=== PATIENT | female | born 1985 | race Caucasian/White ===

== ENCOUNTER 2018-02-27 17:21 | Observation (INO) ==
--- NOTE | 2018-02-27 17:53 | ED ---
HPI General Chief Complaint: Chest Pain Stated Complaint: Chest heavy/Dizziness/Light headed Time Seen by Provider: 02/27/18 17:38 Source: patient Mode of arrival: ambulatory Limitations: no limitations History of Present Illness HPI narrative: 32-year-old female states she has been having chest pain over the past couple of days. She states she has lightheadedness as well. She states she has nitroglycerin her primary doctor gave her given she recent was there and had a low heart rate on her EKG. She states her father had a heart attack in his 20s. She states her last stress test was about 2 or 3 years ago. She states she does not take an aspirin yet today. She denies any other concurrent complaints. She denies specific modifying factors. MD complaint: Reports chest pain STEMI Alert: No Onset (ago): day(s) Duration: intermittent Pain location: Reports substernal Severity: moderate Quality: Reports heaviness Pain radiation: Reports none Relieving factors: nothing Exacerbating factors: nothing Treatments prior to arrival chest pain: Reports none Related Data Home Medications Medication Instructions Recorded Confirmed aspirin [Aspir-81] 81 mg PO HS 02/27/18 02/27/18 diltiazem HCl [Cardizem LA] 120 mg PO DAILY 02/27/18 02/27/18 metformin 1,000 mg PO BID 02/27/18 02/27/18 metoprolol succinate 50 mg PO DAILY 02/27/18 02/27/18 nitroglycerin [Nitrostat] 0.4 mg SUBLINGUAL Q5-15M PRN 02/27/18 02/27/18 Allergies Allergy/AdvReac Type Severity Reaction Status Date / Time codeine Allergy Severe Hallucinati Unverified 02/27/18 17:58 ons doxycycline Allergy Severe Hives Unverified 02/27/18 17:58 Review of Systems ROS: all other systems reviewed are negative PMFSH History History Provided By: Patient (Hypertension) Medical History Medical History History of PCOS (Acute) History of chest pain (Acute) History of hypertension (Acute) Surgical History Surgical History Hx of tubal ligation (Acute) Social History Social History Substance History: No History of Abuse Second Hand Smoke Exposure: Yes Smoking Status: Current some day smoker Tobacco Type: Cigarettes How Often Do You Have a Drink Containing Alcohol: 2 to 4 times a month Recent Travel in [facility] within the Last 8 Weeks: No Recent Out of Country Travel within the Last 8 Weeks: No Exam Narrative Exam Narrative: GENERAL: 32-year-old female in no apparent distress SKIN: Focused skin assessment warm/dry. HEAD: Atraumatic. Normocephalic. EYES: Pupils equal and round. No scleral icterus. No injection or drainage. ENT: No nasal bleeding or discharge. Mucous membranes pink and moist. NECK: Trachea midline. No JVD. CARDIOVASCULAR: Regular rate and rhythm. No murmur appreciated. RESPIRATORY: No accessory muscle use. Clear to auscultation. Breath sounds equal bilaterally. GASTROINTESTINAL: Abdomen soft, non-tender, nondistended MUSCULOSKELETAL: No obvious deformities. No clubbing. No cyanosis. No edema. NEUROLOGICAL: Awake and alert. No obvious cranial nerve deficits. Motor grossly within normal limits. Normal speech. PSYCHIATRIC: Appropriate mood and affect; insight and judgment normal. Course Reevaluation(s) Reevaluation #1: ED workup no acute, agrees to chest pain center observation Initial Documented Vital Signs Pulse Oximetry 98 02/27/18 17:38 Last Documented Vital Signs Temperature 98 F 02/27/18 17:58 Pulse Rate 85 02/27/18 17:58 Respiratory Rate 18 02/27/18 17:58 Blood Pressure 141/96 H 02/27/18 17:58 Pulse Oximetry 96 02/27/18 17:58 Medical Decision Making [facility] Narrative Medical decision making narrative: Will check blood work, x-ray and dose with aspirin and nitroglycerin and reevaluate Medical Screen Exam Complete: Yes Emergency Medical Condition: Yes Differential Diagnosis Differential Diagnosis: Atypical cardiac, PE, musculoskeletal. Gastritis Lab Data Lab results reviewed: Yes I reviewed the patient's lab results. Result diagrams: 02/27/18 17:45 02/27/18 17:45 Lab Results 02/27/18 02/27/18 02/27/18 Range/Units 17:45 17:45 17:45 CBC w Diff Auto diff final WBC 10.1 (4.0-11.0) th/mm3 RBC 4.38 (4.00-5.30) mil/mm3 Hgb 14.3 (11.6-15.3) gm/dL Hct 42.3 (35.0-46.0) % MCV 96.4 (80.0-100.0) fL MCH 32.7 (27.0-34.0) pg MCHC 33.9 (32.0-36.0) % RDW 12.0 (11.6-17.2) % Plt Count 187 (150-450) th/mm3 MPV 11.1 H (7.0-11.0) fL Neut % (Auto) 62.7 (16.0-70.0) % Lymph % (Auto) 28.1 (9.0-44.0) % Rich % (Auto) 5.5 (0.0-8.0) % Eos % (Auto) 1.2 (0.0-4.0) % Baso % (Auto) 2.5 H (0.0-2.0) % Neut # (Auto) 6.3 (1.8-7.7) th/mm3 Lymph # (Auto) 2.8 (1.0-4.8) th/mm3 [place] # (Auto) 0.6 (0.0-0.9) th/mm3 Eos # (Auto) 0.1 (0.0-0.4) th/mm3 Baso # (Auto) 0.3 H (0.0-0.2) th/mm3 WBC Differential . Differential Comment . PT 9.6 L (9.8-11.6) sec INR 0.9 Ratio APTT 23.3 L (24.3-30.1) sec D-Dimer Quant (PE/DVT) 0.27 (0.00-0.50) mg/L FEU Sodium 140 (136-145) meq/L Potassium 3.3 L (3.5-5.1) meq/L Chloride 105 (98-107) meq/L Carbon Dioxide 24.7 (21.0-32.0) meq/L Anion Gap 10 (5-15) meq/L BUN 10 (7-18) mg/dL Creatinine 0.90 (0.50-1.00) mg/dL Estimated GFR 72 L (>89) mL/min Random Glucose 124 H (74-106) mg/dL Calcium 8.7 (8.5-10.1) mg/dL Magnesium 1.7 (1.5-2.5) mg/dL Total Bilirubin 0.2 (0.2-1.0) mg/dL AST 22 (15-37) U/L ALT 34 (10-53) U/L Alkaline Phosphatase 98 (45-117) U/L Total Creatine Kinase 99 (26-192) U/L Troponin I Less than 0.02 L (0.02-0.05) ng/mL Total Protein 7.2 (6.4-8.2) g/dL Albumin 3.7 (3.4-5.0) g/dL Lipase 112 (73-393) U/L Imaging Data Attestation: I personally reviewed and interpreted this imaging study as follows : Radiologist's impression: Chest X-Ray 02/27/18 17:38 CONCLUSION: No acute cardiopulmonary process. Discharge Plan Discharge Disposition Patient Disposition: 30 Still Patient Discharge Condition Condition: Stable Discharge Details Diagnosis: Chest pain Physicians Team ED Provider: Archana Rodriguez Primary Care Provider: UNKNOWN, Rxs /Orders / Referrals /Forms Prescriptions: No Action metoprolol succinate 50 mg Tablet Extended Release 24 Hr 50 mg PO DAILY RF: 0 aspirin [Aspir-81] 81 mg Tablet,Delayed Release (Dr/Ec) 81 mg PO HS RF: 0 metformin 1,000 mg Tablet 1,000 mg PO BID RF: 0 nitroglycerin [Nitrostat] 0.4 mg Tablet, Sublingual 0.4 mg SUBLINGUAL Q5-15M PRN (Reason: Chest Pain) RF: 0 diltiazem HCl [Cardizem LA] 120 mg Tablet Extended Release 24 Hr 120 mg PO DAILY RF: 0 Discharge Instructions Patient Printed Instructions: Chest Pain (ED) Status ED Status: Admitted Observation Patient
[2018-02-27 18:08] LABS: Baso # (Auto) 0.3 th/mm3 (0.0-0.2); Baso % (Auto) 2.5 % (0.0-2.0); Eos # (Auto) 0.1 th/mm3 (0.0-0.4); Eos % (Auto) 1.2 % (0.0-4.0); Hematocrit 42.3 % (35.0-46.0); Hemoglobin 14.3 gm/dL (11.6-15.3); Lymph # (Auto) 2.8 th/mm3 (1.0-4.8); Lymph % (Auto) 28.1 % (9.0-44.0); Mean Corpuscular HGB Conc 33.9 % (32.0-36.0); Mean Corpuscular Hemoglobin 32.7 pg (27.0-34.0); Mean Corpuscular Volume 96.4 fL (80.0-100.0); Mean Platelet Volume 11.1 fL (7.0-11.0); Mono # (Auto) 0.6 th/mm3 (0.0-0.9); Mono % (Auto) 5.5 % (0.0-8.0); Neut # (Auto) 6.3 th/mm3 (1.8-7.7); Neut % (Auto) 62.7 % (16.0-70.0); Platelet Count 187 th/mm3 (150-450); Red Blood Count 4.38 mil/mm3 (4.00-5.30); White Blood Count 10.1 th/mm3 (4.0-11.0)
[2018-02-27 18:09] LABS: Chloride 105 meq/L (98-107); Potassium 3.3 meq/L (3.5-5.1); Sodium 140 meq/L (136-145)
[2018-02-27 18:13] LABS: Albumin 3.7 g/dL (3.4-5.0); Anion Gap 10 meq/L (5-15); Blood Urea Nitrogen 10 mg/dL (7-18); Calcium 8.7 mg/dL (8.5-10.1); Carbon Dioxide 24.7 meq/L (21.0-32.0); Glucose,Random 124 mg/dL (74-106); Lipase 112 U/L (73-393); Magnesium 1.7 mg/dL (1.5-2.5)
[2018-02-27 18:15] LABS: Activated Partial Thrombo Time 23.3 sec (24.3-30.1); INR 0.9 Ratio; Prothrombin Time 9.6 sec (9.8-11.6)
--- NOTE | 2018-02-27 18:15 | XR ---
EXAM DATE: 02/27/2018 5:38 PM EDT AGE/SEX: 32 years / Female INDICATIONS: Chest pain and pressure. CLINICAL DATA: This is the patient's initial encounter. Patient reports that signs and symptoms have been present for 1 week and indicates a pain score of 5/10. MEDICAL/SURGICAL HISTORY: None. None. COMPARISON: None. FINDINGS: A single AP view of the chest demonstrates the lungs to be symmetrically aerated without evidence of mass, infiltrate or effusion. The cardiomediastinal contours are unremarkable. Osseous structures a re intact. CONCLUSION: No acute cardiopulmonary process. Electronically signed by: Yasmani Amaya MD 02/27/2018 6:14 PM EDT
[2018-02-27 18:16] LABS: Alanine Aminotransferase 34 U/L (10-53); Aspartate Aminotransferase 22 U/L (15-37); Glomerular Filtration Rate 72 mL/min (>89)
[2018-02-27 18:18] LABS: Total Protein 7.2 g/dL (6.4-8.2)
[2018-02-27 18:19] LABS: Alkaline Phosphatase 98 U/L (45-117)
[2018-02-27 18:24] LABS: Creatine Kinase 99 U/L (26-192); D-Dimer 0.27 mg/L FEU (0.00-0.50)
[2018-02-27] MEDS ORDERED: Dextrose 50% in Water 50 ML Vial IV.PUSH PRN (18:33)
[2018-02-27] MEDS ORDERED: Acetaminophen 500 MG Tablet PO PRN (18:35)
[2018-02-27] MEDS ORDERED: Potassium Bicarbonate 25 MEQ Effervescent Tablet PO ONE (20:00)
[2018-02-27] MEDS: Insulin NovoLOG Aspart Correctional Sugar Inj SQ SCH (20:48)
[2018-02-27] MEDS ORDERED: dilTIAZem CD 120 MG Capsule PO SCH (21:00)
[2018-02-27 21:16] LABS: Bilirubin,Urine Negative (Negative); Clarity,Urine Clear (Clear); Glucose,Urine (UA) Negative (Negative); Leukocyte Esterase,Urine Negative (Negative); Nitrite,Urine Negative (Negative); PH,Urine 6.5 (5.0-8.5); Specific Gravity,Urine Less/Equal 1.005 (1.002-1.035); Urobilinogen,Urine 0.2 mg/dL (Less than 2)
[2018-02-27 21:17] LABS: Color,Urine Straw (Yellw/Straw)
[2018-02-27 21:18] LABS: Creatine Kinase 78 U/L (26-192)
[2018-02-27 21:22] LABS: Squamous Epithelial Cell,Urine 0-5 /hpf (0-5); WBC,Urine 0-5 /hpf (0-5)
[2018-02-28 00:48] LABS: Creatine Kinase 73 U/L (26-192)
[2018-02-28] MEDS: Insulin NovoLOG Aspart Correctional Sugar Inj SQ SCH ×2 (07:34→12:03)
--- NOTE | 2018-02-28 08:38 | P.HP ---
History of Present Illness Primary Care Physician: Jocelyn Ramsay Chief Complaint: Chest pain History of Present Illness: 32-year-old female with known history of hypertension, PCOS, family history of early onset heart disease who presented the hospital for evaluation of chest discomfort. Patient states that she has chronic chest discomfort which is going on for years. Last time she had evaluation was at [facility] approximately 10 months ago where she was evaluated and was given nitro with relief of her pain and she was discharged home. She did indicate to her prior medical doctor that she is still been experiencing intermittent chest discomfort and she was prescribed nitro to use during the episodes. Patient states that she gets chest discomfort at least one time a week which is located in her chest which she describes as a heaviness sensation. States that it feels like the discomfort is coming from her back out into her chest with radiation to her left arm. She had associated dizziness and possible shortness of breath. She denies any diaphoresis, the pain usually last anywhere from 30 minutes to a couple days at a time. She indicates that her last stress test was done approximately 5 years ago. The patient did just quit smoking cigarettes 3 weeks ago. Patient was evaluated emergency department and it was recommended by the ER physician that the patient be observed in the hospital for further evaluation and management. - Diagnosis (1) Chest pain Review of Systems All other systems reviewed negative except as stated in HPI Cardiovascular: Reports chest pain PMFSH - History History Provided By: Patient - Medical History Medical History: Medical History (Last Reviewed 02/28/18 @ 07:52 by JOVAN Sanchez) History of PCOS History of chest pain History of hypertension - Surgical History Surgical History: Surgical History (Last Updated 02/28/18 @ 07:52 by JOVAN Sanchez) History of bilateral breast reduction surgery History of bunionectomy History of right knee surgery History of tonsillectomy Hx of tubal ligation - Family History Family History: Family History (Last Updated 02/28/18 @ 07:53 by JOVAN Sanchez) Father History of myocardial infarction History of stroke Mother History of seizure - Tobacco History Second Hand Smoke Exposure: Yes Tobacco Use In Past 30 Days: Yes Smoking Status: Former smoker Tobacco Type: Cigarettes Number of Pack Years (if former smoker): 18 (Quit 3 weeks ago) - Alcohol History How Often Do You Have a Drink Containing Alcohol: Monthly or less - Substance Use History Substance History: No History of Abuse - Travel History Recent Travel in the [place] Within the Last 8 Weeks: No Recent Travel Out of the Country Within the Last 8 Weeks: No - Immunization History Tetanus Immunization: Unsure Medications and Allergies Active Medications: Active Medications Acetaminophen (Tylenol) 500 mg PO Q4H PRN PRN Reason: HEADACHE Aspirin (Aspirin) 325 mg PO DAILY [facility] Dextrose (D50w Vial) 50 ml IV.PUSH UNSCH PRN PRN Reason: PER HYPOGLYCEMIA PROTOCOL Diltiazem HCl (Cardizem Cd 24hr) 120 mg PO [facility] Last Admin: 02/27/18 22:49 Dose: 120 mg Glucagon (Glucagon Inj) 1 mg OTHER PRN PRN PRN Reason: for Hypoglycemia Protocol Insulin Aspart (Novolog Insulin Correctional Sugar Inj) 0 unit SQ ACHS [facility]; Protocol Last Admin: 02/28/18 07:34 Dose: Not Given Metoprolol Succinate (Toprol Xl) 50 mg PO DAILY [facility] Nitroglycerin (Nitrostat Sl) 0.4 mg SL Q5M PRN PRN Reason: Chest Pain Ondansetron HCl (Zofran Inj) 4 mg IV.PUSH Q6H PRN PRN Reason: NAUSEA Sodium Chloride (Ns Flush) 2 ml IV.FLUSH BID [facility] Last Admin: 02/27/18 20:53 Dose: 2 ml Sodium Chloride (Ns Flush) 2 ml IV.FLUSH PRN PRN PRN Reason: FLUSH AFTER USING IV ACCESS Allergies Allergy/AdvReac Type Severity Reaction Status Date / Time codeine Allergy Severe Hallucinati Verified 02/27/18 19:26 ons doxycycline Allergy Severe Hives Verified 02/27/18 19:26 Home Medications Medication Instructions Recorded Confirmed Type aspirin [Aspir-81] 81 mg PO HS 02/27/18 02/27/18 History diltiazem HCl [Cardizem LA] 120 mg PO HS 02/27/18 02/27/18 History metformin 1,000 mg PO BID 02/27/18 02/27/18 History metoprolol succinate 50 mg PO DAILY 02/27/18 02/27/18 History nitroglycerin [Nitrostat] 0.4 mg SUBLINGUAL Q5-15M PRN 02/27/18 02/27/18 History Exam Vital signs: Vital Signs 02/27/18 17:38 02/27/18 17:52 02/27/18 17:58 Temperature 98 F Pulse Rate 85 85 Respiratory Rate 18 Blood Pressure 141/96 H Pulse Oximetry 98 96 96 02/27/18 18:37 02/27/18 19:22 02/27/18 20:05 Temperature Pulse Rate 83 78 58 L Respiratory Rate 16 16 16 Blood Pressure 126/84 126/84 158/82 H Pulse Oximetry 98 98 99 02/27/18 21:20 02/27/18 21:50 02/28/18 00:10 Temperature 97.7 F Pulse Rate 60 71 Respiratory Rate 18 Blood Pressure 132/85 Pulse Oximetry 97 97 02/28/18 04:00 Temperature 97.2 F L Pulse Rate 71 Respiratory Rate 18 Blood Pressure 120/69 Pulse Oximetry 94 L Intake & Output 02/27/18 02/28/18 02/28/18 18:59 06:59 18:59 Weight 103.7 kg 93.8 kg Other: # Voids 2 Weight On Admission 103.419 kg Narrative: GENERAL: Well-developed, well-nourished, in no acute distress. alert and orientated HEENT: Head is normocephalic without any lesions or masses noted. Facial features are symmetric. Eyes: Pupils equal round reactive to light. Extraocular muscles are intact. Conjunctivae were clear. Oropharyngeal: Pharynx without any erythema edema. Tongue is midline without deviation. Buccal mucosa is moist without any masses or lesions NECK: Supple without any masses. Trachea midline no deviation. No JVD, no bruits are appreciated CARDIAC: Regular rhythm, regular rate. S1/S2 are heard. No murmurs gallops or rubs. LUNGS: Clear to auscultation bilaterally. No wheeze, rhonchi or rales. No use of accessory muscles on inspiration or expiration. ABDOMEN: Soft, nontender. Nondistended. Bowel sounds heard in all 4 quadrants. No organomegaly or masses. Negative rebound, negative guarding EXTREMITIES: No edema, pulses are equal bilaterally. No cyanosis or clubbing NEUROLOGY: Mood and affect appear appropriate. Cranial nerves II through XII grossly intact. Muscle strength 5/5 in upper and lower extremities bilaterally. Deep tendon reflexes are 2+ in upper and lower extremities bilaterally. Results - Labs CBC & Chem 7: 02/27/18 17:45 02/27/18 17:45 Labs: Laboratory Results - last 24 hr 1002/27/18 02/27/18 17:45 17:45 17:45 CBC w Diff Auto diff final WBC 10.1 RBC 4.38 Hgb 14.3 Hct 42.3 MCV 96.4 MCH 32.7 MCHC 33.9 RDW 12.0 Plt Count 187 MPV 11.1 H Neut % (Auto) 62.7 Lymph % (Auto) 28.1 [place] % (Auto) 5.5 Eos % (Auto) 1.2 Baso % (Auto) 2.5 H Neut # (Auto) 6.3 Lymph # (Auto) 2.8 [place] # (Auto) 0.6 Eos # (Auto) 0.1 Baso # (Auto) 0.3 H WBC Differential . Differential Comment . PT 9.6 L INR 0.9 APTT 23.3 L D-Dimer Quant (PE/DVT) 0.27 Sodium 140 Potassium 3.3 L Chloride 105 Carbon Dioxide 24.7 Anion Gap 10 BUN 10 Creatinine 0.90 Estimated GFR 72 L POC Glucose Random Glucose 124 H Calcium 8.7 Magnesium 1.7 Total Bilirubin 0.2 AST 22 ALT 34 Alkaline Phosphatase 98 Total Creatine Kinase 99 Troponin I Less than 0.02 L Total Protein 7.2 Albumin 3.7 Lipase 112 Urine Color Urine Clarity Urine pH Ur Specific [place] Urine Protein Urine Glucose (UA) Urine Ketones Urine Occult Blood Urine Nitrate Urine Bilirubin Urine Urobilinogen Ur Leukocyte Esterase Urine WBC Ur Squamous Epith Cells Micro UA Comment Ur Microscopic Review Urine Culture Comments 02/27/18 02/27/18 02/27/18 20:45 20:50 21:10 CBC w Diff WBC RBC Hgb Hct MCV MCH MCHC RDW Plt Count MPV Neut % (Auto) Lymph % (Auto) [place] % (Auto) Eos % (Auto) Baso % (Auto) Neut # (Auto) Lymph # (Auto) [place] # (Auto) Eos # (Auto) Baso # (Auto) WBC Differential Differential Comment PT INR APTT D-Dimer Quant (PE/DVT) Sodium Potassium Chloride Carbon Dioxide Anion Gap BUN Creatinine Estimated GFR POC Glucose 79 Random Glucose Calcium Magnesium Total Bilirubin AST ALT Alkaline Phosphatase Total Creatine Kinase 78 Troponin I Less than 0.02 L Total Protein Albumin Lipase Urine Color Straw Urine Clarity Clear Urine pH 6.5 Ur Specific [place] Less/equal 1.005 Urine Protein Negative Urine Glucose (UA) Negative Urine Ketones Negative Urine Occult Blood Negative Urine Nitrate Negative Urine Bilirubin Negative Urine Urobilinogen 0.2 Ur Leukocyte Esterase Negative Urine WBC 0-5 Ur Squamous Epith Cells 0-5 Micro UA Comment Culture not ind Ur Microscopic Review Microscopic reviewed Urine Culture Comments Culture not ind 02/28/18 02/28/18 00:05 07:31 CBC w Diff WBC RBC Hgb Hct MCV MCH MCHC RDW Plt Count MPV Neut % (Auto) Lymph % (Auto) [place] % (Auto) Eos % (Auto) Baso % (Auto) Neut # (Auto) Lymph # (Auto) [place] # (Auto) Eos # (Auto) Baso # (Auto) WBC Differential Differential Comment PT INR APTT D-Dimer Quant (PE/DVT) Sodium Potassium Chloride Carbon Dioxide Anion Gap BUN Creatinine Estimated GFR POC Glucose 117 H Random Glucose Calcium Magnesium Total Bilirubin AST ALT Alkaline Phosphatase Total Creatine Kinase 73 Troponin I Less than 0.02 L Total Protein Albumin Lipase Urine Color Urine Clarity Urine pH Ur Specific [place] Urine Protein Urine Glucose (UA) Urine Ketones Urine Occult Blood Urine Nitrate Urine Bilirubin Urine Urobilinogen Ur Leukocyte Esterase Urine WBC Ur Squamous Epith Cells Micro UA Comment Ur Microscopic Review Urine Culture Comments - Imaging Impressions Chest X-Ray 02/27/18 17:38 CONCLUSION: No acute cardiopulmonary process. Caprini VTE Risk Assessment Caprini VTE Risk Assessment: No/Low Risk (score <= 1) Caprini Risk Assessment Model: Point Value = 1 Point Value = 2 Point Value = 3 Point Value = 5 Age 41-60 Minor surgery BMI > 25 kg/m2 Swollen legs Varicose veins or History of unexplained or recurrent spontaneous Oral contraceptives or hormone replacement Sepsis (< 1 month) Serious lung disease, including pneumonia (< 1 month) Abnormal pulmonary function Acute myocardial infarction Congestive heart failure (< 1 month) History of inflammatory bowel disease Medical patient at bed rest Age 61-74 Arthroscopic surgery Major open surgery (> 45 min) Laparoscopic surgery (> 45 min) Malignancy Confined to bed (> 72 hours) Immobilizing plaster cast Central venous access Age >= 75 History of VTE Family history of VTE Factor V Leiden Prothrombin [id number] Lupus anticoagulant Anticardiolipin antibodies Elevated serum homocysteine Heparin-induced thrombocytopenia Other congenital or acquired thrombophilia Stroke (< 1 month) Elective arthroplasty Hip, pelvis, or leg fracture Acute spinal cord injury (< 1 month) Prophylaxis Regimen: Total Risk Factor Score Risk Level Prophylaxis Regimen 0-1 Low Early ambulation 2 Moderate Order ONE of the following: *Sequential Compression Device (SCD) *Heparin 5000 units SQ BID 3-4 Higher Order ONE of the following medications: *Heparin 5000 units SQ TID *Enoxaparin/Lovenox 40 mg SQ daily (WT < 150 kg, CrCl > 30 mL/min) *Enoxaparin/Lovenox 30 mg SQ daily (WT < 150 kg, CrCl > 10-29 mL/min) *Enoxaparin/Lovenox 30 mg SQ BID (WT < 150 kg, CrCl > 30 mL/min) AND/OR *Sequential Compression Device (SCD) 5 or more Highest Order ONE of the following medications: *Heparin 5000 units SQ TID (Preferred with Epidurals) *Enoxaparin/Lovenox 40 mg SQ daily (WT < 150 kg, CrCl > 30 mL/min) *Enoxaparin/Lovenox 30 mg SQ daily (WT < 150 kg, CrCl > 10-29 mL/min) *Enoxaparin/Lovenox 30 mg SQ BID (WT < 150 kg, CrCl > 30 mL/min) AND *Sequential Compression Device (SCD) Assessment and Plan - Assessment (1) Chest pain Code(s): R07.9 - Chest pain, unspecified Status: Acute - Plan Chest pain: Chronic/recurrent -Patient does have increased risk factors to include body habitus, tobacco use, hypertension, early onset family history -Patient has been ruled out for acute coronary event with serial cardiac enzymes remain negative -Serial EKGs were reviewed by myself which does not indicate any acute changes, does show sinus rhythm with first-degree AV block -Myocardial perfusion study was performed and indicated low risk, no signs of ischemia, ejection fraction 56% -Continue aspirin, nitroglycerin as needed Hypertension -Continue home medications DVT prevention -Sequential compression devices Discharge Planning: Discharge home in stable condition Activity: Ad sylvester. Diet: Healthy heart diet Medication per medication reconciliation Follow-up with primary medical doctor in 1 week (1) Chest pain Qualifiers: Chest pain type: unspecified Qualified Code(s): R07.9 - Chest pain, unspecified
[2018-02-28] MEDS ORDERED: dilTIAZem CD 120 MG Capsule PO SCH (09:00)
[2018-02-28] MEDS ORDERED: Aspirin 325 MG Tablet PO SCH (09:00)
--- NOTE | 2018-02-28 09:19 | ECG ---
Date Performed: 02/28/2018 Time Performed: 00:21:33 PTAGE: 32 years EKG: Sinus rhythm WITH SINUS ARRHYTHMIA WITH FIRST DEGREE AV BLOCK ABNORMAL ECG PREVIOUS TRACING : 02/27/2018 21.03 DOCTOR: Irineo Lovell Interpretating Date/Time 02/28/2018 09:17:21
[2018-02-28 09:46] VITALS: RESP 20
--- NOTE | 2018-02-28 09:49 | ECG ---
Date Performed: 02/27/2018 Time Performed: 21:03:18 PTAGE: 32 years EKG: Sinus rhythm WITH FIRST DEGREE AV BLOCK ABNORMAL ECG PREVIOUS TRACING : 02/27/2018 17.29 DOCTOR: Irineo Lovell Interpretating Date/Time 02/28/2018 09:47:19
[2018-02-28 10:27] LABS: Chol/HDL Ratio 4.44 Ratio; HDL Cholesterol 29.9 mg/dL (40.0-60.0)
--- NOTE | 2018-02-28 10:48 | ECG ---
Date Performed: 02/27/2018 Time Performed: 17:29:44 PTAGE: 32 years EKG: Sinus rhythm WITH FIRST DEGREE AV BLOCK ABNORMAL ECG INTERPRETATION BASED ON A DEFAULT AGE OF 39 YEARS PREVIOUS TRACING : 11/09/2011 11.33 DOCTOR: Irineo Lovell Interpretating Date/Time 02/28/2018 10:46:54
[2018-02-28] MEDS ORDERED: Regadenoson Inj 0.4 MG/5 ML Syringe IV.PUSH ONE (12:09)
[2018-02-28 13:10] VITALS: BP 150/75; PULSE 51; TEMP 98.2; O2SAT 97
--- NOTE | 2018-02-28 13:18 | NM ---
EXAM DATE: 02/28/2018 11:44 AM EDT AGE/SEX: 32 years / Female INDICATIONS:Abnormal EKG. Angina Mid chest pain for one day. CLINICAL DATA: This is the patient's initial encounter. Patient reports that signs and symptoms have been present for 1 day and indicates a pain score of 2/10. MEDICAL/SURGICAL HISTORY: Hypertension. Tubal ligation. Tonsillectomy. COMPARISON: No prior exams available for comparison. No external comparison. DOSE: 8.7 mCi Tc 99m Myoview at rest 25.5 mCi [id number] at stress 0.4 mg Lexiscan STRESS SYMPTOMS: Short of breath. EJECTION FRACTION: 56 % TECHNIQUE: The patient underwent pharmacologic stress with infusion of prescribed dose. Continuous ECG tracing was monitored during stress. Gated SPECT imaging was performed after stress and conventi onal SPECT imaging was performed at rest. The examination was performed on a SPECT/CT scanner, both attenuation and non-corrected datasets were reviewed. FINDINGS: Distribution: The maximum perfused segment at stress is in the anterolateral wall. Perfusion Study: The pattern of perfusion at stress is within normal limits. Gated Study: There are intact wall motion and wall thickening without hypokinetic or dyskinetic segm ents. The ejection fraction is calculated at 56%. RISK CATEGORY: Low (<1% Annual Motality Rate) CONCLUSION: 1. No reversible perfusion defects to suggest ischemia. 2. Ejection fraction 56%. Electronically signed by: Sharad Paulson MD 02/28/2018 1:16 PM EDT
--- NOTE | 2018-02-28 14:58 | TR ---
Date Performed: 02/28/2018 Time Performed: 12:19:24 DOCTOR: Junaid Patterson DRUG LIST: CLINICAL HISTORY: ABNORMAL ECG REASON FOR TEST: ABNORMAL EKG, ELEVATED TROPONINS REASON FOR ENDING: OBSERVATION: CONCLUSION: COMMENTS: Lexiscan stress test was performed under standard four minute protocol. Radionuclide was injected one minute prior to ending the test. No electrocardiographic abormalities were present t o suggest ischemia. Nuclear imaging and interpretation are pending.
== END 2018-02-28 14:10 | disposition home or self-care (01) ==
LOC: PHEDA 17:21 → PHED 17:21 → PH3 21:32
PROVIDERS: ADMIT Hospitalist; ATTEND Hospitalist